=== PATIENT | male | born 1985 | race Caucasian/White ===

== ENCOUNTER 2020-01-31 22:02 | Emergency (ER) | payer BC, OTHER ==
[~2020-01-31] VITALS: Ht 188 cm; Wt 97.1 kg
[2020-01-31] MEDS ORDERED: ADDERALL 12.512.5 MG PO (22:30)
[2020-01-31] MEDS ORDERED: XANAX XR0.5 MG PO (22:30)
[2020-01-31] MEDS ORDERED: WELLBUTRIN XL150 MG PO (22:30)
[2020-02-01] MEDS ORDERED: KEFLEX500 M1 PO (00:32)
[2020-02-01 00:39] VITALS: BP 143/97
== END 2020-02-01 00:50 | disposition home or self-care (01) ==
LOC: ER 22:02
DX: S01.81XA Laceration without foreign body of other part of head, initial encounter (principal); Z79.899 Other long term (current) drug therapy; W22.01XA Walked into wall, initial encounter; Y93.68 Activity, volleyball (beach) (court); Y92.89 Other specified places as the place of occurrence of the external cause; Y99.8 Other external cause status

== ENCOUNTER 2020-02-12 13:27 | Emergency (ER) | payer BC, OTHER ==
[~2020-02-12] VITALS: Ht 190.5 cm; Wt 97.5 kg
[~2020-02-12 13:27] MED LIST: ADDERALL 12.512.5 MG PO; KEFLEX500 M1 PO; WELLBUTRIN XL150 MG PO; XANAX XR0.5 MG PO
== END 2020-02-12 13:44 | disposition home or self-care (01) ==
LOC: ER 13:27
DX: S01.81XD Laceration without foreign body of other part of head, subsequent encounter (principal); Z79.899 Other long term (current) drug therapy; W22.01XD Walked into wall, subsequent encounter